=== PATIENT | female | born 1980 | race Caucasian/White ===

== ENCOUNTER 2024-10-17 12:52 | Day surgery (SDC) | payer BC ==
[2024-10-14 12:43] VITALS: BMI 30.2
[~2024-10-17 12:52] MED LIST: LIDOCAINE 1% (10MG/ML) FOR IV START INTRADERMA PRN
[2024-10-17 13:19] VITALS: RESP 18; TEMP 97.7
[2024-10-17] MEDS: LACTATED RINGERS 1,000 ML IV SCH (13:35)
[2024-10-17] MEDS: IV FLUID CONTINUATION 1,000 ML IV ONE (13:36)
[2024-10-17] MEDS ORDERED: PROPOFOL 10 MG/ML 20 ML VIAL IV ONE (13:49)
--- NOTE | 2024-10-17 14:10 | P.PCN ---
Date of Procedure: 10/17/24 Preoperative Diagnosis: Diarrhea Postoperative Diagnosis: Diarrhea Internal hemorrhoids Procedure(s) Performed: Colonoscopy with biopsy Anesthesia: MAC Surgeon: Ina Rowland Pathology: other (Biopsies of cecum, ascending, transverse, descending, sigmoid colon and rectum) Condition: stable Disposition: same day Indications for Procedure: 44-year-old female with history of diarrhea over the past few months. Denies any blood in her stool. Plan for colonoscopy for further evaluation. Risks, benefits and alternatives were provided to the patient. All questions answered. Operative Findings: Overall, normal-appearing colon with mild internal hemorrhoids Description of Procedure: The patient was brought to the endoscopy suite and placed in left lateral decubitus position and adequate sedation was achieved using conscious sedation. Digital rectal exam was performed and mild internal hemorrhoids were palpated. An endoscope was then placed in the rectum and advanced to the cecum as identified by landmarks including the appendiceal orifice and the ileocecal valve. The prep was good. The colonoscope was then slowly withdrawn, examining for any mucosal abnormalities. The cecum, ascending, transverse, descending and sigmoid colon were visualized adequately. There were no large inflammatory lesions throughout the colon. No evidence of diverticulosis. No polyps were noted. Multiple biopsies were taken throughout the colon for evaluation of diarrhea. Hemostasis was maintained. Retroflexion was performed in the rectum and mild internal hemorrhoids were noted. Excess air was removed, the colonoscope withdrawn and the procedure terminated. The patient was then transferred to the recovery unit in stable condition. Repeat colonoscopy should be performed in 8 years.
[2024-10-17 14:33] VITALS: BP 125/80; PULSE 63
== END 2024-10-17 14:55 | disposition home or self-care (01) ==
LOC: ORWHC2ENDO 12:52
PROVIDERS: ATTEND Surgery
DX: R19.7 Diarrhea, unspecified (principal); K64.8 Other hemorrhoids; F32.A Depression, unspecified; Z79.899 Other long term (current) drug therapy; Z98.84 Bariatric surgery status; Z91.040 Latex allergy status; Z91.048 Other nonmedicinal substance allergy status
CPT/HCPCS: 81025; 88305; 84703; 45380; J2704